=== PATIENT | male | born 2000 | race Caucasian/White ===

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

== ENCOUNTER 2020-01-21 16:27 | Emergency (ER) | payer MEDICAID ==
[~2020-01-21] VITALS: Ht 177.8 cm; Wt 69.4 kg
[2020-01-21 16:52] VITALS: Ht 177.8 cm; Wt 69.4 kg
[2020-01-21 19:07] LABS: BASOPHIL % 0.6 % (0-2); PLATELET COUNT 234 x10^3mcL (130-400); RED CELL DISTRIBUTION WIDTH 12.3 % (11.5-14.5)
[2020-01-21 19:26] LABS: CALCIUM 8.7 mg/dL (8.5-10.1); CARBON DIOXIDE 26.8 mmol/L (21-32); CHLORIDE SERUM 107 mmol/L (98-107); CREATININE SERUM 0.7 mg/dL (0.7-1.3); GFR1 > 60 mL/min; GLUCOSE SERUM 90 mg/dL (74-106); POTASSIUM SERUM 3.7 mmol/L (3.5-5.1); SODIUM SERUM 143 mmol/L (136-145)
[2020-01-21 19:26] LABS: AMPHETAMINE QUAL UR NONE DETECTED (See below)
[2020-01-21 19:30] LABS: ALKALINE PHOSPHATASE 101 U/L (46-116); ALT/SGPT 48 U/L (16-63); AMYLASE 52 U/L (25-115); AST/SGOT 29 U/L (15-37); BILIRUBIN TOTAL 0.6 mg/dL (0.20-1.00); LIPASE 70 IU/L (73-393); TOTAL PROTEIN, SERUM 7.8 g/dL (6.4-8.2)
[2020-01-21 20:43] VITALS: BP 117/63
== END 2020-01-21 20:43 | disposition home or self-care (01) ==
LOC: ED 16:27
PROVIDERS: Emergency Medicine
DX: K21.9 Gastro-esophageal reflux disease without esophagitis (principal); K59.00 Constipation, unspecified
CPT/HCPCS: 36415; Q0162